=== PATIENT | female | born 1960 | race Caucasian/White ===

== ENCOUNTER → 2024-03-17 15:33 | Outpatient (REF) | payer OTHER, SELFPAY | LOC: WDC 15:33 | PROVIDERS: ATTENDING PHYSICIAN Family Medicine | DX: M25.512 Pain in left shoulder (principal); Z12.31 Encounter for screening mammogram for malignant neoplasm of breast | CPT/HCPCS: 73030; 77063; 77067 ==

== ENCOUNTER → 2025-06-08 08:52 | Outpatient (REF) | payer OTHER, SELFPAY | LOC: RAD 08:52 | PROVIDERS: ATTENDING PHYSICIAN Nurse Practitioner Family; FAMILY PHYSICIAN Family Medicine | DX: Z13.820 Encounter for screening for osteoporosis (principal); E83.52 Hypercalcemia; E34.9 Endocrine disorder, unspecified; Z78.0 Asymptomatic menopausal state; M81.0 Age-related osteoporosis without current pathological fracture | CPT/HCPCS: 77080; 77081 ==

== ENCOUNTER → 2025-06-23 09:00 | Outpatient (REF) | payer OTHER, SELFPAY | LOC: RAD 09:00 | PROVIDERS: ATTENDING PHYSICIAN Nurse Practitioner Family; FAMILY PHYSICIAN Family Medicine | DX: E21.3 Hyperparathyroidism, unspecified (principal); E83.52 Hypercalcemia | CPT/HCPCS: 78071; A9500 ==

== ENCOUNTER → 2025-08-03 12:44 | Outpatient (REF) | payer OTHER, SELFPAY | LOC: RAD 12:44 | PROVIDERS: ATTENDING PHYSICIAN Nurse Practitioner Family; FAMILY PHYSICIAN Family Medicine | DX: D35.1 Benign neoplasm of parathyroid gland (principal) | CPT/HCPCS: 76536 ==

== ENCOUNTER 2025-10-11 06:23 | Day surgery (SDC) | payer OTHER, SELFPAY ==
[2025-09-29 08:52] LABS: Hematocrit 41.7 % (37.0-47.0); Hemoglobin 14.2 g/dL (12.0-16.0); Mean Corp Hgb Conc. 34.1 g/dL (33.0-37.0); Mean Corpuscular Volume 89.7 fL (81.0-99.0); Platelet Count 159 10^3/uL (130-400); Red Cell Dist. Width 12.6 % (11.5-14.5)
[2025-09-29 09:03] LABS: INR 0.89; PT 12.6 Sec (11.4-14.6)
[2025-09-29 09:04] LABS: APTT 33.0 Sec (23.4-35.0)
[2025-09-29 09:55] LABS: ALT (SGPT) 17 U/L (0-35); AST (SGOT) 21 U/L (14-36); Albumin 4.8 g/dl (3.5-5.0); Alkaline Phosphatase 65 U/L (38-126); Blood Urea Nitrogen 20 mg/dl (7-17); Calcium 11.1 mg/dl (8.4-10.2); Carbon Dioxide 29 mmol/L (22-30); Chloride 105 mmol/L (98-107); Glucose 85 mg/dl (70-99); Potassium 4.3 mmol/L (3.5-5.1); Sodium 136 mmol/L (135-145); Total Protein 7.8 g/dl (6.3-8.2); eGFR > 60.00
[2025-09-29 13:12] VITALS: BMI 24.3
[2025-10-11] VITALS (8 sets, daily range): BP systolic 94–120; BP diastolic 62–83; BMI 24.3
[2025-10-11] MEDS: NEURONTIN 300 MG PO (11:22)
[2025-10-11] MEDS: TYLENOL 1000 MG PO (11:23)
[2025-10-11] MEDS: NORMOSOL-R/PLASMALYTE-A 1000 IV (11:32)
[2025-10-11] MEDS: HEPARIN 5000 UNITS SC (11:34)
[2025-10-11 14:24] LABS: Turbo PTH 139.0 pg/ml (14.5-75.2)
[2025-10-11 14:51] LABS: Turbo PTH 24.0 pg/ml (14.5-75.2)
--- NOTE | 2025-10-11 15:01 | OR.RPT ---
Operative Report
Operative Report
Date of Operation: October 11, 2025
Preoperative Diagnosis: Parathyroid hyperparathyroidism - E210
Postoperative Diagnosis: Same
Surgeon: Herber Elmore M.D.
Operation: Minimally Invasive Left Inferior Parathyroidectomy - 57701
Anesthesia: GET
Estimated Blood Loss: 1 cc
Drains: None
Specimen: Left Inferior neck nodule, rule out parathyroid adenoma
Complications: None
Procedure:
The patient was taken to the operating room and placed in the usual supine position. After adequate general endotracheal anesthesia was established, the patient's neck was extended, prepped, and draped in the typical sterile fashion. A 4 cm
transcervical incision was made two fingerbreadths above the sternal notch. The skin incision was made with the #15 blade, and this was taken through the skin into the subcutaneous tissue. The underlying platysma muscle was divided, and subplatysmal
flaps were created superiorly to the thyroid cartilage and inferiorly to the sternal notch. Strap muscles were identified and at the midline.
The attention was turned to the left side of the neck. The left thyroid lobe was mobilized medially. During this process, the left recurrent laryngeal nerve was identified and preserved throughout the surgery. The left lower neck nodule was
identified and noted to be enlarged, excised, and sent to the pathology department, which showed a hypercellular parathyroid gland. The normal-appearing left upper parathyroid gland was identified and preserved. The intraoperative PTH levels
normalized.
After obtaining adequate hemostasis, the strap muscles were reapproximated with #3-0 Vicryl in a running fashion. The platysma muscle was reapproximated with #3-0 Vicryl in an interrupted fashion, and the skin was approximated with #4-0 Monocryl in
a running subcuticular fashion. The Steri-Strips and sterile dressings were placed. The patient tolerated the procedure well. The final instrument, needle, and sponge counts were correct. The patient was extubated and transferred to the PACU.
== END 2025-10-11 16:23 | disposition home or self-care (01) ==
LOC: SDS 06:23
PROVIDERS: ATTENDING PHYSICIAN Surgery; FAMILY PHYSICIAN Family Medicine
DX: E21.4 Other specified disorders of parathyroid gland (principal); E21.0 Primary hyperparathyroidism
CPT/HCPCS: 60500; 80053; 83970; 85027; 85610; 85730; 88305; 88331; 93005